=== PATIENT | female | born 1955 | race Caucasian/White ===

== ENCOUNTER 2020-08-26 06:13 | Outpatient (REF) | payer BC, SELFPAY ==
[2020-08-26 11:45] LABS: MANUAL DIFF FLAG NO
[2020-08-26 12:07] LABS: Basophils Percent Auto 0.5 % (0-2); Eosinophils Absolute Auto 0.5 X10*3/uL (0.0-0.4); Eosinophils Percent Auto 5.1 % (0-4); Hematocrit 48.7 % (37-47); Hemoglobin 16.3 g/dl (12.0-16.0); Imm Gran Abs Auto 0.03 X10*3/uL (0.00-0.03); Imm Gran Pct Auto 0.3 % (0.0-0.4); Lymphocytes Absolute Auto 2.6 X10*3/uL (1.2-4.9); Lymphocytes Percent Auto 30.2 % (20-40); Mean Corpuscular HGB Conc 33.5 g/dl (31.0-35.0); Mean Corpuscular Hemoglobin 32.8 pg (27.0-33.0); Mean Platelet Volume 10.9 fL (9.4-12.3); Monocytes Absolute Auto 0.6 X10*3/uL (0.1-1.2); Neutrophils Percent Auto 56.9 % (45-73); Platelet Count 294 X10*3/uL (160-400); Red Blood Count 4.97 X10*6/uL (4.20-5.50); Red Cell Distribution Width 12.1 % (11.0-16.0); White Blood Count 8.7 X10*3/uL (4.8-10.8)
[2020-08-26 12:18] LABS: Alanine Aminotransferase 27 U/L (0-31); Albumin Level 4.3 g/dL (3.5-5.0); Alkaline Phosphatase 106 U/L (39-117); Anion Gap 14 (12-20); Aspartate Amino Transferase 28 U/L (5-31); Bilirubin Total 0.7 mg/dL (0.0-1.0); Blood Urea Nitrogen 9 mg/dL (9-16); Calcium 9.8 mg/dL (8.4-10.2); Carbon Dioxide 29 mmol/L (22-29); Chloride 103 mmol/L (96-108); Cholesterol 199 mg/dL; Estimated Glomerular Filt Rate > 60; Glucose Fasting 93 mg/dL (60-99); HDL Cholesterol 56 mg/dL; LDL Cholesterol Calculated 112 mg/dl; Potassium 5.4 mmol/L (3.3-5.1); Sodium 141 mmol/L (135-145); Total Protein 7.6 g/dL (6.5-8.0); Triglycerides 158 mg/dL
[2020-08-26 12:29] LABS: Free T4 (Free Thyroxine) 0.97 ng/dL (0.71-1.85); Thyroid Stimulating Hormone 1.88 uIU/mL (0.32-4.0)
== END 2020-08-26 06:14 | disposition home or self-care (01) ==
LOC: HO.HMGCLDS 06:13
PROVIDERS: PCP Internal Medicine; Visit Provider Internal Medicine
DX: Z00.00 Encounter for general adult medical examination without abnormal findings (principal); E03.9 Hypothyroidism, unspecified; E78.5 Hyperlipidemia, unspecified
CPT/HCPCS: 36415; 80053; 80061; 84439; 84443; 85025

== ENCOUNTER 2020-09-24 07:25 | Outpatient (REF) | payer BC, SELFPAY ==
--- NOTE | ~2020-09-24 | MM_ITS ---
EXAMINATION: MM SCREENING DIGITAL BREAST TOMOSYNTHESIS, BILATERAL CLINICAL INFORMATION: Screening. Asymptomatic. The lifetime risk of breast cancer based on the Tyrer-Cuzick Model is 4%. COMPARISON: Mammography: 09/22/2019, 09/16/2018, 08/24/2017 TECHNIQUE: Digital breast tomosynthesis is performed in both the craniocaudal and mediolateral oblique views along with computer-aided detection (CAD). Synthesized 2D images are generated from the tomosynthesis. FINDINGS: There are scattered areas of fibroglandular density (ACR BI-RADS breast composition Category b). There are no significant masses, abnormal calcifications, or other abnormalities. There is a dermal lesion again seen overlying the mid inferior right breast. The axilla are unremarkable. MM/MM tomosynthesis screening BI IMPRESSION: No mammographic evidence of malignancy. ASSESSMENT: BI-RADS 2: Benign RECOMMENDATION: Routine annual mammography screening. This patient's information was entered into a reminder system with a target due date for their next mammogram.
== END 2020-09-24 07:26 | disposition home or self-care (01) ==
LOC: HO.MAMMO 07:25
PROVIDERS: PCP Internal Medicine; Visit Provider Internal Medicine
DX: Z12.31 Encounter for screening mammogram for malignant neoplasm of breast (principal)
CPT/HCPCS: 77063; 77067

== ENCOUNTER 2021-08-24 06:13 | Outpatient (REF) | payer BC, SELFPAY ==
[2021-08-24 11:11] LABS: MANUAL DIFF FLAG NO
[2021-08-24 11:38] LABS: Basophils Absolute Auto 0.1 X10*3/uL (0.0-0.2); Basophils Percent Auto 0.6 % (0-2); Eosinophils Absolute Auto 0.6 X10*3/uL (0.0-0.4); Eosinophils Percent Auto 6.5 % (0-4); Hematocrit 49.6 % (37.0-47.0); Hemoglobin 16.5 g/dl (12.0-16.0); Imm Gran Abs Auto 0.03 X10*3/uL (0.00-0.03); Imm Gran Pct Auto 0.4 % (0.0-0.4); Lymphocytes Absolute Auto 2.3 X10*3/uL (1.2-4.9); Lymphocytes Percent Auto 27.5 % (20-40); Mean Corpuscular HGB Conc 33.3 g/dl (31.0-35.0); Mean Corpuscular Hemoglobin 32.8 pg (27.0-33.0); Mean Corpuscular Volume 98.6 fL (80.0-98.0); Mean Platelet Volume 10.9 fL (9.4-12.3); Monocytes Absolute Auto 0.7 X10*3/uL (0.1-1.2); Monocytes Percent Auto 7.8 % (2-11); Neutrophils Absolute Auto 4.8 x10*3/uL (2.0-8.3); Neutrophils Percent Auto 57.2 % (45-73); Platelet Count 286 X10*3/uL (160-400); Red Blood Count 5.03 X10*6/uL (4.20-5.50); Red Cell Distribution Width 12.4 % (11.0-16.0); White Blood Count 8.4 X10*3/uL (4.8-10.8)
[2021-08-24 12:17] LABS: Free T4 (Free Thyroxine) 1.02 ng/dL (0.71-1.85); Thyroid Stimulating Hormone 2.14 uIU/mL (0.32-4.0)
[2021-08-24 12:24] LABS: Alanine Aminotransferase 24 U/L (0-31); Albumin Level 4.1 g/dL (3.5-5.0); Alkaline Phosphatase 118 U/L (39-117); Anion Gap 14 (12-20); Aspartate Amino Transferase 25 U/L (5-31); Bilirubin Direct 0.2 mg/dL (0.0-0.5); Bilirubin Total 0.4 mg/dL (0.0-1.0); Blood Urea Nitrogen 8 mg/dL (9-16); Carbon Dioxide 27 mmol/L (22-29); Chloride 105 mmol/L (96-108); Cholesterol 200 mg/dL; Estimated Glomerular Filt Rate > 60; Glucose Fasting 93 mg/dL (60-99); HDL Cholesterol 55 mg/dL; LDL Cholesterol Calculated 116 mg/dl; Potassium 4.9 mmol/L (3.3-5.1); Sodium 141 mmol/L (135-145); Total Protein 7.6 g/dL (6.5-8.0); Triglycerides 149 mg/dL
== END 2021-08-24 06:14 | disposition home or self-care (01) ==
LOC: HO.HMGCLDS 06:13
PROVIDERS: Visit Provider Internal Medicine
DX: R53.83 Other fatigue (principal); E78.5 Hyperlipidemia, unspecified; E03.9 Hypothyroidism, unspecified
CPT/HCPCS: 36415; 80051; 80061; 80076; 82565; 82947; 84439; 84443; 84520; 85025

== ENCOUNTER 2021-09-28 07:36 | Outpatient (REF) | payer BC, SELFPAY ==
--- NOTE | ~2021-09-28 | MM_ITS ---
EXAMINATION: MM SCREENING DIGITAL BREAST TOMOSYNTHESIS, BILATERAL CLINICAL INFORMATION: Screening. Asymptomatic. The lifetime risk of breast cancer based on the Tyrer-Cuzick Model is 4%. COMPARISON: Mammography: 09/24/2020, 09/22/2019, 09/16/2018, 08/24/2017 TECHNIQUE: Digital breast tomosynthesis is performed in both the craniocaudal and mediolateral oblique views along with computer-aided detection (CAD). Synthesized 2D images are generated from the tomosynthesis. FINDINGS: There are scattered areas of fibroglandular density (ACR BI-RADS breast composition Category b). There is a dermal lesion overlying the mid 5:30 o'clock position right breast. There is no significant mass or developing density or architectural abnormality in either breast. Incidental low right axillary tail nodes are stable. There are some punctate calcifications mid outer right breast, questionably increased on CC view. Patient to be recalled for additional magnification views. MM/MM tomosynthesis screening BI IMPRESSION: Right: -Question increased punctate calcifications mid 9:30 right breast. Left: -No mammographic evidence of malignancy. ASSESSMENT: BI-RADS 0: Incomplete - Need Additional Imaging Evaluation RECOMMENDATION: 1. Additional views of the right breast (magnification CC, magnification ML). 2. Radiology department staff will contact the patient for additional imaging. This patient's information was entered into a reminder system with a target due date for their next mammogram.
== END 2021-09-28 07:37 | disposition home or self-care (01) ==
LOC: HO.MAMMO 07:36
PROVIDERS: PCP Internal Medicine; Visit Provider Internal Medicine
DX: Z12.31 Encounter for screening mammogram for malignant neoplasm of breast (principal)
CPT/HCPCS: 77063; 77067

== ENCOUNTER 2021-10-04 08:20 | Outpatient (REF) | payer BC, SELFPAY ==
--- NOTE | ~2021-10-04 | MM_ITS ---
EXAMINATION: MM DIAGNOSTIC DIGITAL MAMMOGRAPHY, RIGHT CLINICAL INFORMATION: Recall from screening for question of increased punctate calcifications mid 9:30 right breast. COMPARISON: Mammography: 09/28/2021, 09/24/2020, 09/22/2019 TECHNIQUE: Digital mammography is performed in the following views: Magnification CC, magnification ML FINDINGS: There are scattered areas of fibroglandular density (ACR BI-RADS breast composition Category b). Additional magnification views show some loosely grouped calcifications mid 9:00 position on CC view, dispersed on ML view. Results are discussed with the patient at time of visit. Management plan is for short interval six-month follow-up right mammography to include magnification views. MM/MM added views RT IMPRESSION: Probable benign calcifications mid 9:00 right breast. ASSESSMENT: BI-RADS 3: Probably Benign RECOMMENDATION: Diagnostic right mammography in 6 months. This patient's information was entered into a reminder system with a target due date for their next mammogram.
== END 2021-10-04 08:21 | disposition home or self-care (01) ==
LOC: HO.MAMMO 08:20
PROVIDERS: Visit Provider Internal Medicine
DX: R92.1 Mammographic calcification found on diagnostic imaging of breast (principal)
CPT/HCPCS: 77065

== ENCOUNTER 2022-04-12 10:49 | Outpatient (REF) | payer BC, SELFPAY ==
--- NOTE | ~2022-04-12 | MM_ITS ---
EXAMINATION: MM DIAGNOSTIC DIGITAL BREAST TOMOSYNTHESIS, RIGHT CLINICAL INFORMATION: Short interval six-month follow-up probable benign calcifications mid upper outer right breast. The lifetime risk of breast cancer based on the Tyrer-Cuzick Model is 4%. COMPARISON: Mammography: 10/04/2021, 09/28/2021 (BI-RADS 0), 09/24/2020, 09/22/2019 TECHNIQUE: Digital breast tomosynthesis is performed in both the craniocaudal and mediolateral oblique views along with computer-aided detection (CAD). Synthesized 2D images are generated from the tomosynthesis. Additional magnification CC and magnification ML x2 views are obtained. FINDINGS: There are scattered areas of fibroglandular density (ACR BI-RADS breast composition Category b). Parenchymal pattern is similar to prior exams and there is no developing density or interval mass or architectural abnormality. There is a dermal lesion overlying the mid 8:00 right breast. Calcifications for follow-up mid upper outer right breast are similar to prior diagnostic exam. There are no increasing calcifications or interval pleomorphic types. Calcifications will be reassessed again in 6 months at time of annual bilateral mammography. Results are discussed with the patient at time of visit. MM/MM tomosynthesis diagnostic RT IMPRESSION: Probable benign calcifications upper outer right breast similar to prior diagnostic exam. ASSESSMENT: BI-RADS 3: Probably Benign RECOMMENDATION: Diagnostic mammography at time of annual bilateral exam, due in 6 months. This patient's information was entered into a reminder system with a target due date for their next mammogram.
== END 2022-04-12 10:50 | disposition home or self-care (01) ==
LOC: HO.MAMMO 10:49
PROVIDERS: PCP Internal Medicine; Visit Provider Internal Medicine
DX: R92.1 Mammographic calcification found on diagnostic imaging of breast (principal)
CPT/HCPCS: 77061; 77065

== ENCOUNTER 2022-10-20 08:22 | Outpatient (REF) | payer BC, SELFPAY ==
--- NOTE | ~2022-10-20 | MM_ITS ---
EXAMINATION: MM DIAGNOSTIC DIGITAL BREAST TOMOSYNTHESIS, BILATERAL CLINICAL INFORMATION: The patient presents for follow-up of right breast calcifications and left screening mammography. The lifetime risk of breast cancer based on the Tyrer-Cuzick Model is 3.6%. COMPARISON: Mammography: This study is compared with the prior exams dating back to 2020. TECHNIQUE: Digital breast tomosynthesis is performed in both the craniocaudal and mediolateral oblique views along with computer-aided detection (CAD). Synthesized 2D images are generated from the tomosynthesis. CC and lateral magnification imaging of the right breast. FINDINGS: There are scattered areas of fibroglandular density (ACR BI-RADS breast composition Category b). There are no significant masses, abnormal calcifications, or other abnormalities. There is been no interval change in the appearance of the benign calcifications in the upper outer quadrant of the right breast. MM/MM tomosynthesis diagnostic BI IMPRESSION: No mammographic signs of malignancy. Benign calcifications right breast. Routine annual screening mammography is advised. Results are provided to the patient at time of visit by the technologist. ASSESSMENT: BI-RADS BI-RADS 2 - Benign Findings RECOMMENDATION: 1 year F/U This patient's information was entered into a reminder system with a target due date for their next mammogram.
== END 2022-10-20 08:23 | disposition home or self-care (01) ==
LOC: HO.MAMMO 08:22
PROVIDERS: Visit Provider Internal Medicine
DX: R92.1 Mammographic calcification found on diagnostic imaging of breast (principal)
CPT/HCPCS: 77062; 77066

== ENCOUNTER → 2022-10-20 08:30 | Outpatient (BNV) | payer BC, SELFPAY | PROVIDERS: Visit Provider Radiology Diagnostic Radiology | DX: R92.1 Mammographic calcification found on diagnostic imaging of breast (principal) | CPT/HCPCS: 77066 ==

== ENCOUNTER 2023-03-13 06:59 | Outpatient (REF) | payer BC, SELFPAY ==
[2023-03-13 11:26] LABS: MANUAL DIFF FLAG NO
[2023-03-13 11:30] LABS: Basophils Absolute Auto 0.1 X10*3/uL (0.0-0.2); Basophils Percent Auto 0.6 % (0-2); Eosinophils Absolute Auto 0.2 X10*3/uL (0.0-0.4); Eosinophils Percent Auto 1.6 % (0-4); Hematocrit 46.9 % (37.0-47.0); Hemoglobin 15.6 g/dl (12.0-16.0); Imm Gran Abs Auto 0.04 X10*3/uL (0.00-0.03); Imm Gran Pct Auto 0.4 % (0.0-0.4); Lymphocytes Absolute Auto 2.4 X10*3/uL (1.2-4.9); Lymphocytes Percent Auto 24.5 % (20-40); Mean Corpuscular HGB Conc 33.3 g/dl (31.0-35.0); Mean Corpuscular Hemoglobin 32.7 pg (27.0-33.0); Mean Corpuscular Volume 98.3 fL (80.0-98.0); Monocytes Absolute Auto 0.8 X10*3/uL (0.1-1.2); Monocytes Percent Auto 8.1 % (2-11); Neutrophils Absolute Auto 6.3 x10*3/uL (2.0-8.3); Neutrophils Percent Auto 64.8 % (45-73); Platelet Count 416 X10*3/uL (160-400); Red Blood Count 4.77 X10*6/uL (4.20-5.50); Red Cell Distribution Width 11.9 % (11.0-16.0); White Blood Count 9.7 X10*3/uL (4.8-10.8)
[2023-03-13 12:06] LABS: Alanine Aminotransferase 12 U/L (0-31); Albumin Level 3.6 g/dL (3.5-5.0); Alkaline Phosphatase 116 U/L (39-117); Anion Gap 15 (12-20); Aspartate Amino Transferase 20 U/L (5-31); Bilirubin Direct 0.3 mg/dL (0.0-0.5); Bilirubin Total 0.6 mg/dL (0.0-1.0); Blood Urea Nitrogen 8 mg/dL (9-16); Carbon Dioxide 28 mmol/L (22-29); Chloride 104 mmol/L (96-108); Cholesterol 164 mg/dL (<200); Estimated Glomerular Filt Rate > 60; Glucose Fasting 91 mg/dL (60-99); HDL Cholesterol 44 mg/dL (>40); LDL Cholesterol Calculated 89 mg/dL (<100); Potassium 4.7 mmol/L (3.3-5.1); Sodium 142 mmol/L (135-145); Total Protein 7.6 g/dL (6.5-8.0); Triglycerides 155 mg/dL (<150)
[2023-03-13 12:07] LABS: Thyroid Stimulating Hormone 2.29 uIU/mL (0.32-4.0)
[2023-03-13 13:30] LABS: Free T4 (Free Thyroxine) 0.98 ng/dL (0.71-1.85)
== END 2023-03-13 07:00 | disposition home or self-care (01) ==
LOC: HO.HMGCLDS 06:59
PROVIDERS: PCP Internal Medicine; Visit Provider Internal Medicine
DX: Z00.00 Encounter for general adult medical examination without abnormal findings (principal); R53.83 Other fatigue; E78.5 Hyperlipidemia, unspecified
CPT/HCPCS: 36415; 80051; 80061; 80076; 82565; 82947; 84439; 84443; 84520; 85025

== ENCOUNTER → 2023-04-18 09:47 | Outpatient (REF) | payer BC, SELFPAY ==
--- NOTE | 2023-04-18 09:49 | CA_ITS ---
Transthoracic Echocardiogram Patient (Last, First, Middle): Kena Mendes E Gender: Female Date of : 1955 Age: 67 Procedure Date: 04/18/2023 Procedure Type: Transthoracic Echocardiogram Location: OP Height: 162.56 cm Weight: 61.24 kg BSA: 1.66 m2 Heart Rate: 84 bpm BP: 120 / 80 mmHg Fire Official: SB Referring MD: Valeriano Napoles MD Dry Roller: Doron Weinberg MD Symptoms: NEW MURMUR Study Quality: Fair but adequate ECG Rhythm: Sinus Conclusions: - 1. Hyperdynamic LV ejection fraction greater than 70% with mild LVH and grade 1 diastolic dysfunction with mild obstructive physiology 2. Normal cardiac valvular Doppler 3. No gross pericardial effusion Findings Procedure Information The quality of the study was technically difficult. The study quality is limited by lung artifact. Left Ventricle Normal left ventricular cavity size. There is mildly increased left ventricular wall thickness. The left ventricular systolic function is hyperdynamic. The visually estimated ejection fraction is >70%. Spectral Doppler is indicative of an impaired relaxation filling pattern. E/E prime ratio is <8, consistent with normal filling pressures. Evidence suggests grade I (mild) diastolic dysfunction. Mildly increased gradient across the left ventricular outflow track, suggestive of mild obstructive physiology, dynamic obstruction can not be entirely ruled out Right Ventricle Normal right ventricular cavity size. Atria The left atrium is normal in size. Interatrial shunt cannot be excluded. The right atrium was not well visualized. Aortic Valve The aortic valve structure and function is likely normal. There is no aortic valve stenosis. There is no aortic valve regurgitation. Mitral Valve Normal mitral valve structure and function. There is trace mitral valve regurgitation. There is no mitral valve stenosis. Pulmonic Valve The pulmonic valve was not well visualized. Tricuspid Valve Likely normal tricuspid valve structure and function. Tricuspid regurgitation envelope is inadequate for calculation of right ventricular systolic pressure. Normal right atrial pressure. Great Vessels The pulmonary artery was not well visualized. There is no dilatation of the ascending aorta measuring 2.60 cm. Venous The inferior vena cava is normal in size and collapses greater than 50% with inspiration. Pericardium/Pleural There is no evidence of pericardial effusion. Prior Study Comparison No prior study available for comparison. Measurements 2D Linear Measurements IVSd: 1.17 0.6-0.9/0.6-1.0 cm LVIDd: 3.52 3.9-5.3/4.2-5.9 cm LVIDd Index: 2.12 2.4-3.2/2.2-3.1 cm/m2 LVIDs: 1.65 2.0-3.6 cm LVPWd: 1.17 0.7-1.1 cm LA Diam: 2.80 2.7-3.8/3.0-4.0 cm LAIDs Index: 1.69 1.5-2.3 cm/m2 LV Mass: 163.92 67-162/88-224 g LV Mass Index: 98.75 43-95/49-115 g/m2 LVOT Diam: 2.00 3.0+(-)1.3 cm 2D Systolic Function EF 4C: 74.10 >55% Mitral Valve MV Pk E: 0.58 MV PK A: 0.89 MV Decel Time: 257.00 E/A: 0.60 E'Lateral: 6.31 E'Medial: 5.87 E/E' Med: 9.80 E/E' Lat: 9.20 PHT: 75.00 MVA PHT: 2.93 Decel Vermillion: 2.25 Aortic Valve AoV Pk Jose: 2.03 AoV Mn Jose: 1.49 AoV VTI: 0.39 AoV Pk Grad: 16.00 Aov Mn Grad: 10.00 KATHLEEN Cont.VTI: 2.68 LVOT LVOT Pk Jose: 1.95 LVOT Mn Jose: 1.41 LVOT VTI: 0.34 LVOT Pk Grad: 15.00 LVOT Mn Grad: 9.00 LVOT Diam: 2.00 LVOT Area: 3.14 Diastolic Function MV Pk E: 0.58 MV Pk A: 0.89 E/A: 0.60 E'Medial: 5.87 E/E' Med: 9.80 E' Laterial: 6.31 E/E' Lat: 9.20 Right Ventricle TAPSE (mm): 15.20 TVS' Jose: 11.30 Tricuspid Valve RA Press: 3.00 Great Vessels Aorta Sinus of Valsalva: 2.90 2.0-3.5 cm Ao Asc: 2.60 2.1-3.4 cm Pulmonary Valve PV Pk Jose: 1.13 Peak PV Grad: 5.00 Updated in Other Vendor System with Status of Final Doron Weinberg MD electronically signed on 04/18/2023 12:02:25 PM with status of Final
== END ==
LOC: HO.CARD 09:47
PROVIDERS: PCP Internal Medicine; Visit Provider Internal Medicine
DX: R01.1 Cardiac murmur, unspecified (principal)
CPT/HCPCS: 93306

== ENCOUNTER → 2023-04-18 09:49 | Outpatient (BNV) | payer BC, SELFPAY | PROVIDERS: PCP Internal Medicine; Visit Provider Internal Medicine Cardiovascular Disease | DX: R01.1 Cardiac murmur, unspecified (principal) | CPT/HCPCS: 93306 ==

== ENCOUNTER 2023-10-26 07:06 | Outpatient (REF) | payer BC, SELFPAY ==
--- NOTE | ~2023-10-26 | MM_ITS ---
EXAMINATION: MM SCREENING DIGITAL BREAST TOMOSYNTHESIS, BILATERAL CLINICAL INFORMATION: Screening. Asymptomatic. COMPARISON: Mammography: This study is compared with prior exams dating back to 2019. TECHNIQUE: Digital breast tomosynthesis is performed in both the craniocaudal and mediolateral oblique views along with computer-aided detection (CAD). Synthesized 2D images are generated from the tomosynthesis. FINDINGS: The breasts are almost entirely fatty (ACR BI-RADS breast composition Category a). There are no significant masses, abnormal calcifications, or other abnormalities. MM/MM tomosynthesis screening BI IMPRESSION: No mammographic evidence of malignancy. ASSESSMENT: BI-RADS BI-RADS 1 - Negative RECOMMENDATION: Routine annual mammography screening. 1 year F/U This examination should not preclude the clinical evaluation of a suspicious palpable abnormality. This patient's information was entered into a reminder system with a target due date for their next mammogram. Electronically signed by: Grace Young MD 11/23/2023 12:26 PM EDT
== END 2023-10-26 07:07 | disposition home or self-care (01) ==
LOC: HO.MAMMO 07:06
PROVIDERS: PCP Internal Medicine; Visit Provider Internal Medicine
DX: Z12.31 Encounter for screening mammogram for malignant neoplasm of breast (principal)
CPT/HCPCS: 77063; 77067

== ENCOUNTER → 2023-10-26 07:30 | Outpatient (BNV) | payer BC, SELFPAY | PROVIDERS: PCP Internal Medicine; Visit Provider Radiology Diagnostic Radiology | DX: Z12.31 Encounter for screening mammogram for malignant neoplasm of breast (principal) | CPT/HCPCS: 77063; 77067 ==

== ENCOUNTER 2024-03-11 07:44 | Outpatient (REF) | payer BC, SELFPAY ==
[2024-03-11 09:59] LABS: MANUAL DIFF FLAG NO
[2024-03-11 10:12] LABS: Basophils Absolute Auto 0.1 X10*3/uL (0.0-0.2); Basophils Percent Auto 0.9 % (0-2); Eosinophils Absolute Auto 0.2 X10*3/uL (0.0-0.4); Eosinophils Percent Auto 2.9 % (0-4); Hematocrit 48.8 % (37.0-47.0); Hemoglobin 16.9 g/dl (12.0-16.0); Imm Gran Abs Auto 0.04 X10*3/uL (0.00-0.03); Imm Gran Pct Auto 0.5 % (0.0-0.4); Lymphocytes Absolute Auto 2.6 X10*3/uL (1.2-4.9); Lymphocytes Percent Auto 33.4 % (20-40); Mean Corpuscular HGB Conc 34.6 g/dl (31.0-35.0); Mean Corpuscular Hemoglobin 33.5 pg (27.0-33.0); Mean Corpuscular Volume 96.8 fL (80.0-98.0); Mean Platelet Volume 10.8 fL (9.4-12.3); Monocytes Absolute Auto 0.7 X10*3/uL (0.1-1.2); Neutrophils Absolute Auto 4.1 x10*3/uL (2.0-8.3); Neutrophils Percent Auto 53.3 % (45-73); Platelet Count 291 X10*3/uL (160-400); Red Blood Count 5.04 X10*6/uL (4.20-5.50); Red Cell Distribution Width 12.4 % (11.0-16.0); White Blood Count 7.7 X10*3/uL (4.8-10.8)
[2024-03-11 10:34] LABS: Alanine Aminotransferase 24 U/L (0-31); Albumin Level 3.8 g/dL (3.5-5.0); Alkaline Phosphatase 88 U/L (39-117); Anion Gap 12 (12-20); Aspartate Amino Transferase 32 U/L (5-31); Bilirubin Total 0.6 mg/dL (0.0-1.0); Blood Urea Nitrogen 10 mg/dL (9-16); Calcium 9.6 mg/dL (8.4-10.2); Carbon Dioxide 29 mmol/L (22-29); Chloride 104 mmol/L (96-108); Cholesterol 182 mg/dL (<200); Estimated Glomerular Filt Rate > 60; Glucose Fasting 98 mg/dL (60-99); HDL Cholesterol 61 mg/dL (>40); LDL Cholesterol Calculated 99 mg/dL (<100); Potassium 4.8 mmol/L (3.3-5.1); Sodium 140 mmol/L (135-145); Total Protein 7.4 g/dL (6.5-8.0); Triglycerides 113 mg/dL (<150)
[2024-03-11 10:53] LABS: Free T4 (Free Thyroxine) 1.12 ng/dL (0.71-1.85); Thyroid Stimulating Hormone 0.03 uIU/mL (0.32-4.0)
== END 2024-03-11 07:45 | disposition home or self-care (01) ==
LOC: HO.HMGCLDS 07:44
PROVIDERS: PCP Internal Medicine; Visit Provider Internal Medicine
DX: Z00.00 Encounter for general adult medical examination without abnormal findings (principal); E78.5 Hyperlipidemia, unspecified; E03.9 Hypothyroidism, unspecified
CPT/HCPCS: 36415; 80053; 80061; 84439; 84443; 85025

== ENCOUNTER → 2024-04-01 10:58 | Outpatient (REF) | payer BC, SELFPAY ==
--- NOTE | 2024-04-01 11:00 | CA_ITS ---
Transthoracic Echocardiogram Patient (Last, First, Middle): Kena Mendes E Gender: Female Date of : 1955 Age: 68 Procedure Date: 04/01/2024 Procedure Type: Transthoracic Echocardiogram Location: OP Height: 162.56 cm Weight: 56.7 kg BSA: 1.60 m2 Heart Rate: bpm BP: 130 / 72 mmHg Psych Sales Specialist: CIRILO Referring MD: Valeriano Napoles MD Symptoms: F/U MURMUR Study Quality: Fair ECG Rhythm: Sinus Conclusions: - The left ventricular systolic function is hyperdynamic. The visually estimated ejection fraction is >70%. - Resting LV intra-cavitary gradient of 6mmHg; with valsalva, reaches 24mmHg. - No obvious valvular pathology seen on this study. Findings Left Ventricle Normal left ventricular cavity size. There is mildly increased left ventricular wall thickness. The left ventricular systolic function is hyperdynamic. The visually estimated ejection fraction is >70%. There is no evidence of regional wall motion abnormalities. Diastolic function is normal for age. Resting LV intra-cavitary gradient of 6mmHg; with valsalva, reaches 24mmHg. Right Ventricle Normal right ventricular cavity size and systolic function. Atria Both atria are normal in size. Aortic Valve There is a normal trileaflet aortic valve. There is mild calcification of the aortic valve. There is no aortic valve stenosis. There is no aortic valve regurgitation. Mitral Valve The mitral valve appears normal. There is trace mitral valve regurgitation. There is no mitral valve stenosis. Pulmonic Valve The pulmonic valve is likely normal. Tricuspid Valve Normal tricuspid valve structure. There is trace tricuspid valve regurgitation. There is no evidence of pulmonary hypertension. Great Vessels The asc aorta is normal in size. Venous The inferior vena cava is normal in size and collapses greater than 50% with inspiration. Pericardium/Pleural There is no evidence of pericardial effusion. Prior Study Comparison No significant change compared to prior study dated: 04/18/2023. Recommendations, Care & Conclusions No obvious valvular pathology seen on this study. Measurements 2D Linear Measurements IVSd: 1.13 0.6-0.9/0.6-1.0 cm LVIDd: 3.42 3.9-5.3/4.2-5.9 cm LVIDd Index: 2.14 2.4-3.2/2.2-3.1 cm/m2 LVIDs: 2.17 2.0-3.6 cm LVPWd: 1.11 0.7-1.1 cm LA Diam: 2.40 2.7-3.8/3.0-4.0 cm LAIDs Index: 1.50 1.5-2.3 cm/m2 LV Mass: 146.97 67-162/88-224 g LV Mass Index: 91.86 43-95/49-115 g/m2 LVOT Diam: 2.10 3.0+(-)1.3 cm Mitral Valve MV Pk E: 0.51 MV PK A: 0.87 MV Decel Time: 317.00 E/A: 0.60 E'Lateral: 6.09 E'Medial: 4.57 E/E' Med: 11.20 E/E' Lat: 8.40 PHT: 93.00 MVA PHT: 2.37 Decel Custer: 1.61 Aortic Valve AoV Pk Jose: 1.75 AoV Mn Jose: 1.11 AoV VTI: 0.37 AoV Pk Grad: 12.00 Aov Mn Grad: 6.00 KATHLEEN Cont.VTI: 2.40 LVOT LVOT Pk Jose: 1.29 LVOT Mn Jose: 1.01 LVOT VTI: 0.26 LVOT Pk Grad: 7.00 LVOT Mn Grad: 4.00 LVOT Diam: 2.10 LVOT Area: 3.46 Diastolic Function MV Pk E: 0.51 MV Pk A: 0.87 E/A: 0.60 E'Medial: 4.57 E/E' Med: 11.20 E' Laterial: 6.09 E/E' Lat: 8.40 Right Ventricle TAPSE (mm): 17.50 TVS' Jose: 11.90 Tricuspid Valve RA Press: 3.00 Great Vessels Aorta Sinus of Valsalva: 2.79 2.0-3.[address] [place]: 2.62 1.7-3.4 cm Ao Asc: 2.80 2.1-3.4 cm Updated in Other Vendor System with Status of Final Dirk Boyce MD electronically signed on 04/02/2024 12:53:18 PM with status of Final
== END ==
LOC: HO.CARD 10:58
PROVIDERS: PCP Internal Medicine; Visit Provider Internal Medicine
DX: R01.1 Cardiac murmur, unspecified (principal)
CPT/HCPCS: 93306

== ENCOUNTER → 2024-04-01 11:00 | Outpatient (BNV) | payer BC, SELFPAY | PROVIDERS: PCP Internal Medicine; Visit Provider Internal Medicine | DX: R01.1 Cardiac murmur, unspecified (principal); I35.8 Other nonrheumatic aortic valve disorders | CPT/HCPCS: 93306 ==

== ENCOUNTER 2024-06-03 09:30 | Outpatient (AMB) | payer BC, SELFPAY ==
--- NOTE | 2024-06-03 09:36 | MHC.PC.OV ---
Vital Signs 06/03/24 09:40 Height 5 ft 4 in Weight 123 lb BMI 21.1 BP 116/68 Respiration 14 Pulse 92 Pulse Source Pulse Oximeter Temp 97.6 F Pulse Oximetry (%) 98 Oxygen Delivery Method Room Air Intake Visit Reasons: New patient Stock Mixer Required: No Accompanied by: Self / Same As Patient Allergies No Known Allergies Allergy (Unverified 06/03/24 10:09) Medication List - Last Reconciled 06/03/24 by Cirilo Smalls MD alendronate 70 mg PO QWEEK levothyroxine 25 mcg PO DAILY simvastatin 20 mg PO DAILY Tobacco use date assessed: 06/03/24 Fall risk assessment: No Falls in past year Last assessed Fall Risk: 06/03/24 Dental Screening Dental Screen Date: 06/03/24 Did you have a dental visit in the last 12 months?: Yes Did you have a dental problem in the last 6 months where you did not have access to dental care?: No [facility] Medical History (Updated 06/03/24 @ 10:03 by Cirilo Smalls MD) Tobacco use disorder Acquired hypothyroidism Age-related osteoporosis without current pathological fracture Hyperlipidemia, unspecified Family History Brother Diabetes Mother Bipolar 1 disorder Social History Housing: House Alcohol intake: current Alcohol intake frequency: 0-2 drinks per day Alcohol type: beer Patient Tobacco Use Status: Current everyday Tobacco user Cigarettes Per Day: 5 service: No Current occupational status: retired Cognitive needs: No Hearing needs: No Vision needs: Yes Questionnaire PHQ-9 Over the last 2 weeks, how often have you been bothered by any of the following problems? 1. Little interest or pleasure in doing things: not at all 2. Feeling down, depressed, or hopeless: not at all 3. Trouble falling or staying asleep, or sleeping too much: not at all 4. Feeling tired or having little energy: not at all 5. Poor appetite or overeating: not at all 6. Feeling bad about yourself - or that you are a failure or have let yourself or your family down: not at all 7. Trouble concentrating on things, such as reading the newspaper or watching television: not at all 8. Moving or speaking so slowly that other people could have noticed. Or the opposite - being so fidgety or restless that you have been moving around a lot more than usual: not at all 9. Thoughts that you would be better off or of hurting yourself in some way: not at all Total score: 0 Source: Developed by Drs. Bart Torres, Autumn Canas, Yaya Mullen and colleagues, with an educational mohsen from [employer]. Thrive Questionnaire Date Thrive assessed: 06/03/24 I am a: Patient What is your living situation today?: I have a steady place to live Within the past 12 months, did the food you bought not last and you didn't have the money to get more?: Never true Within the past 12 months, did you worry whether your food would run out before you got money to buy more?: Never true Do you have trouble paying for medicines?: No Do you have trouble getting transportation to medical appointments?: No Do you have trouble paying your heating and electricity bill?: No Do you have trouble taking care of your child, family member or friend?: No Do you have trouble with day-to-day activities such as bathing, preparing meals, shopping, managing finances, etc.?: No Are you currently unemployed and looking for a job?: No Are you interested in more education?: No THRIVE Score: 0 AUDIT C Alcohol Use Questionnaire (AUDIT-C) 1. How often do you have a drink containing alcohol?: 4 or more times a week 2. How many drinks containing alcohol do you have on a typical day when you are drinking?: 1 or 2 3. How often do you have six or more drinks on one occasion?: Never Total Score: 4 MIRIAM-7 AMB Questionnaire MIRIAM-7 Date MIRIAM - 7 assessed: 06/03/24 Feeling nervous, anxious, or on edge: 0 = Not at all Not being able to stop or control worryin = Not at all Worrying too much about different things: 0 = Not at all Trouble relaxin = Not at all Being so restless that it is hard to sit still: 0 = Not at all Becoming easily annoyed or irritable: 0 = Not at all Feeling afraid as if something awful might happen: 0 = Not at all Total MIRIAM-7 score (0-4 normal; 5-9 mild; 10-14 moderate; 15-21 severe): 0 Source: Developed by Drs. Bart Torres, Autumn Cnaas, Yaya Mullen and colleagues, with an educational mohsen from [employer]. Physical exam (Primary Care) Vital Signs: Last Vital Signs Temp 97.6 F 06/03/24 09:40 Pulse 92 06/03/24 09:40 Resp 14 06/03/24 09:40 BP 116/68 06/03/24 09:40 Pulse Ox 98 06/03/24 09:40 Oxygen Delivery Method Room Air 06/03/24 09:40 BMI result Body Mass Index 21.1 Tobacco/Smoking Status: Tobacco use Status Tobacco use date assessed 06/03/24 06/03/24 09:50 Patient Tobacco Use Status Current everyday Tobacco 06/03/24 09:50 PHQ-9: PHQ-9 Score PHQ-9: Total score 0 06/03/24 09:50 Thrive Assessment: Date of Thrive Assessment Date Thrive assessed 06/03/24 06/03/24 09:50 Coding Level of Care Code New Pt Level 4 (30570) Complex EM visit Add On G2211 Diagnoses Acquired hypothyroidism E03.9 Age-related osteoporosis without current pathological fracture M81.0 Hyperlipidemia, unspecified E78.5 Tobacco use disorder F17.200 Assessment & Plan Assessment & Plan (1) Acquired hypothyroidism: Code(s): E03.9 - Hypothyroidism, unspecified Category: Medical Plan: Rpt TSH, dosage to be adjusted based on results (2) Age-related osteoporosis without current pathological fracture: Code(s): M81.0 - Age-related osteoporosis without current pathological fracture Category: Medical Plan: Continue Alendronate. (3) Hyperlipidemia, unspecified: Code(s): E78.5 - Hyperlipidemia, unspecified Category: Medical Plan: Continue Statin. Will call with results (4) Tobacco use disorder: Code(s): F17.200 - Nicotine dependence, unspecified, uncomplicated Category: Medical Plan: Counselling to quit smoking done Plan History of Present Illness The patient is a 68-year-old female presenting for a wellness visit and chronic condition management. She reports difficulty with weight gain and alterations in dietary habits following the of her two years ago, impacting her nutritional status. She uses nutritional supplements to aid in weight maintenance. The patient's chronic medical history includes osteoporosis managed with weekly alendronate, hyperlipidemia controlled with daily bedtime doses of Simvastatin, and hypothyroidism treated with 50 mcg of thyroid medication. She has been screened for cardiac issues through echocardiograms with no significant findings noted except for a previously identified heart murmur. She adheres to regular preventive screenings, including annual mammograms and Cologuard tests, opting out of invasive colonoscopy procedures. Her health maintenance also includes an occasional review of blood work during annual physicals. 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 - Nutritional intake: Consuming Ensure supplements to maintain weight Review of Systems Physical Exam General: Appearance normal, both eyes and all related structures Nutritional Appearance: Underweight, patient reports difficulty gaining weight Orientation/consciousness: Patient oriented x3 Limitations: No limitations Head: Normal to inspection Neck: Normal visual inspection Chest: Normal palpation of entire chest wall Respiratory: Normal respiratory effort Neurology: Patient oriented x3 Heart: S1 S2, ESM best heard in the apical area Results - Tests: Previous echocardiograms negative for significant findings - Screenings: Mammogram last completed last summer; Cologuard test done last year Plan We aim to monitor and manage the patient's chronic conditions effectively, ensuring that her thyroid function and other relevant parameters are assessed through blood work. She will continue with her established medication regimen for osteoporosis and hyperlipidemia. The patient's nutritional status will be supported with supplements and efforts to increase solid food intake. The heart murmur is noted but requires no immediate intervention following prior tests. Compliance with non-invasive screening methods like Cologuard will be encouraged as she declines colonoscopy. We have scheduled a follow-up appointment in six months for further evaluation and continuance of her health maintenance and preventative care plans. Will await Cologard report and Echo records from previous MD Dr Napoles. Patient was informed and verbally consented to the use of an ambient scribe for clinic note documentation during this visit. Discussion Notes During the visit, I discussed with the patient the management of her chronic conditions, notably osteoporosis, hyperlipidemia, hypothyroidism, and her heart murmur. The importance of continued medication adherence was emphasized, and the plan for ongoing non-invasive screenings was reviewed. We discussed her recent lifestyle changes, including her living situation, smoking habits, and sleep patterns. I recommended specific actions like nutritional supplement use and smoking moderation. The patient was consented on the symptoms to monitor and when to reach out for earlier than scheduled reviews. Her next appointment is in six months, aligning with her physical examination protocol. Patient Instructions - Continue current medication regimen for all chronic conditions. - Maintain nutritional intake with Ensure and attempt to increase solid food consumption. - Proceed with scheduled blood work for thyroid testing. - Keep smoking to a minimum, ideally reducing the daily intake further. - Monitor any significant health changes and report if necessary. - Adhere to regular health screening practices; next Cologuard due per interval guidance. - A follow-up appointment has been arranged for six months. - Report any cardiorespiratory or other concerning symptoms immediately. Orders: Orders Thyroid Stimulating Hormone Today E03.9 - Hypothyroidism, unspecified, E78.5 - Hyperlipidemia, unspecified, F17.200 - Nicotine dependence, unspecified, uncomplicated, M81.0 - Age-related osteoporosis without current pathological fracture UA and rflx microscopic Today E03.9 - Hypothyroidism, unspecified, E78.5 - Hyperlipidemia, unspecified, F17.200 - Nicotine dependence, unspecified, uncomplicated, M81.0 - Age-related osteoporosis without current pathological fracture Basic Metabolic Panel Today E03.9 - Hypothyroidism, unspecified, E78.5 - Hyperlipidemia, unspecified, F17.200 - Nicotine dependence, unspecified, uncomplicated, M81.0 - Age-related osteoporosis without current pathological fracture Lipid Panel Today E03.9 - Hypothyroidism, unspecified, E78.5 - Hyperlipidemia, unspecified, F17.200 - Nicotine dependence, unspecified, uncomplicated, M81.0 - Age-related osteoporosis without current pathological fracture Liver Panel Today E03.9 - Hypothyroidism, unspecified, E78.5 - Hyperlipidemia, unspecified, F17.200 - Nicotine dependence, unspecified, uncomplicated, M81.0 - Age-related osteoporosis without current pathological fracture Complete Blood Count no Diff Today E03.9 - Hypothyroidism, unspecified, E78.5 - Hyperlipidemia, unspecified, F17.200 - Nicotine dependence, unspecified, uncomplicated, M81.0 - Age-related osteoporosis without current pathological fracture
[2024-06-03 09:40] VITALS: BP 116/68; PULSE 92; RESP 14; TEMP 36.4; O2SAT 98; BMI 21.1
== END 2024-06-03 10:04 | disposition home or self-care (01) ==
LOC: HO.HMCSH 09:30
PROVIDERS: PCP Internal Medicine; Visit Provider Internal Medicine
DX: E03.9 Hypothyroidism, unspecified (principal); M81.0 Age-related osteoporosis without current pathological fracture; E78.5 Hyperlipidemia, unspecified; F17.200 Nicotine dependence, unspecified, uncomplicated

== ENCOUNTER 2024-08-07 08:04 | Outpatient (REF) | payer BC, SELFPAY ==
--- NOTE | ~2024-08-07 | XR_ITS ---
EXAMINATION: XR RIBS, LEFT CLINICAL INFORMATION: S20.212A - Contusion of left front wall of thorax, initial encounter COMPARISON: None available. TECHNIQUE: 3 views of the left ribs were obtained. FINDINGS: Lungs are clear. No consolidation, pneumothorax, or pleural effusion. The cardiomediastinal silhouette and pulmonary vasculature are normal. There is a right convex thoracic scoliosis, apex at T7. There are acute appearing minimally displaced fractures of the left lateral fourth through seventh ribs. XR/XR ribs LT min 3V w CXR1V IMPRESSION: 1. Acute fractures left lateral fourth through seventh ribs. 2. Clear lungs without evidence of pneumothorax or effusion. Electronically signed by: Levy Stern MD 08/07/2024 08:49 AM EDT
== END 2024-08-07 08:05 | disposition home or self-care (01) ==
LOC: HO.HMGCX 08:04
PROVIDERS: PCP Internal Medicine; Visit Provider Nurse Practitioner Family
DX: S20.212A Contusion of left front wall of thorax, initial encounter (principal)
CPT/HCPCS: 71101

== ENCOUNTER 2024-08-07 08:04 | Outpatient (AMB) | payer BC, SELFPAY ==
--- NOTE | 2024-08-07 08:05 | AM.OFFWIN_ITS ---
Intake Vital Signs 3 08/07/24 08:06 Weight 123 lb BP 128/70 Blood Pressure Location Rt brachial Position Sitting Pulse 79 Pulse Source Pulse Oximeter Pulse Oximetry (%) 97 Oxygen Delivery Method Room Air Intake Visit Reasons: EP Injury due to fall (Rib) Intake Note: Patient here for left rib pain after a fall last sunday in her living room, she is unsure if she hit her coffee table Patient Tobacco Use Status: Current everyday Tobacco user Allergies No Known Allergies Allergy (Unverified 08/07/24 08:07) Do you need a note to return to daycare/school/sports/work: No HPI HPI Comments 2 History of Present Illness0 Details 68 y/o Female patient who [facility] with c/o Left Sided chest wall pain after a Fall at home last Sunday. She is not sure if she Hit her Coffee Table when she fell. Denies SOB, Wheezing or Chest Pains. [facility] Medical History (Updated 08/07/24 @ 08:29 by Lou Gregorio NP) Contusion of left chest wall Tobacco use disorder Acquired hypothyroidism Age-related osteoporosis without current pathological fracture Hyperlipidemia, unspecified Family History Brother Diabetes Mother Bipolar 1 disorder Social History Housing: House Alcohol intake: current Alcohol intake frequency: 0-2 drinks per day Alcohol type: beer Patient Tobacco Use Status: Current everyday Tobacco user Cigarettes Per Day: 5 service: No Current occupational status: retired Cognitive needs: No Hearing needs: No Vision needs: Yes Review of Systems Const All systems reviewed & are unremarkable except as noted in HPI and below Physical Exam Vital Signs: Last Vital Signs Pulse 79 08/07/24 08:06 BP 128/70 08/07/24 08:06 Pulse Ox 97 08/07/24 08:06 Oxygen Delivery Method Room Air 08/07/24 08:06 Const General: no acute distress; No comfortable Nutritional Appearance: well nourished Orientation/consciousness: patient oriented x3 Chest Chest palpation & inspection: tenderness rib and costochondral junction (Left Side) Chest/axillae images: 2 1. No Crepitus, TTP Resp Effort & Inspection: normal respiratory effort and able to speak in complete sentences Auscultation: clear to auscultation bilaterally, no crackles, no rales, no rhonchi and no wheezes Cardio Rhythm: regular rhythm Heart sounds: S1 normal heart sound present and S2 normal heart sound present Neuro General: patient oriented x3 Assessment & Plan Assessment & Plan (1) Contusion of left chest wall: Code(s): S20.212A - Contusion of left front wall of thorax, initial encounter Qualifiers: Encounter type: initial encounter Qualified Code(s): S20.212A - Contusion of left front wall of thorax, initial encounter Plan: Ordered Chest/Rib Xray. NSAIDs and Acetaminophen for pain relief Ice/Hot Ordered Muscle relaxants. Orders: Orders 2 XR ribs LT min 3V w CXR1V Today S20.212A - Contusion of left front wall of thorax, initial encounter Medications: New 2 lidocaine 5% leave on most painful area for up to 12 hrs 1 patch topical DAILY 30 ea 0RF S20.212A - Contusion of left front wall of thorax, initial encounter cyclobenzaprine 5 mg PO BEDTIME 10 tabs 0RF S20.212A - Contusion of left front wall of thorax, initial encounter ibuprofen 800 mg PO Q8H 30 tabs 0RF S20.212A - Contusion of left front wall of thorax, initial encounter Coding Level of Care Code Est Pt Level 4 (12146) Diagnoses Contusion of left chest wall, initial encounter S20.212A Encounter type: initial encounter Time Spent (min) 20
[2024-08-07 08:06] VITALS: BP 128/70; PULSE 79; O2SAT 97
== END 2024-08-07 08:51 | disposition home or self-care (01) ==
PROVIDERS: PCP Internal Medicine; Visit Provider Nurse Practitioner Family
DX: S20.212A Contusion of left front wall of thorax, initial encounter (principal)

== ENCOUNTER → 2024-08-07 08:31 | Outpatient (BNV) | payer BC, SELFPAY | PROVIDERS: PCP Internal Medicine; Visit Provider Radiology Diagnostic Radiology | DX: S22.42XA Multiple fractures of ribs, left side, initial encounter for closed fracture (principal) | CPT/HCPCS: 71101 ==

== ENCOUNTER 2024-10-29 08:20 | Outpatient (REF) | payer BC, SELFPAY | END 2024-10-29 08:21 | disposition home or self-care (01) | LOC: HO.MAMMO 08:20 | PROVIDERS: PCP Internal Medicine; Visit Provider Internal Medicine | DX: Z12.31 Encounter for screening mammogram for malignant neoplasm of breast (principal) | CPT/HCPCS: 77063; 77067 ==

== ENCOUNTER → 2024-10-29 08:30 | Outpatient (BNV) | payer BC, SELFPAY | PROVIDERS: PCP Internal Medicine; Visit Provider Radiology Body Imaging | DX: Z12.31 Encounter for screening mammogram for malignant neoplasm of breast (principal) | CPT/HCPCS: 77063; 77067 ==

== ENCOUNTER 2024-11-26 08:02 | Outpatient (REF) | payer BC, SELFPAY ==
[2024-11-26 10:14] LABS: Hematocrit 46.6 % (37.0-47.0); Hemoglobin 15.9 g/dl (12.0-16.0); Mean Corpuscular HGB Conc 34.1 g/dl (31.0-35.0); Mean Corpuscular Hemoglobin 33.3 pg (27.0-33.0); Mean Corpuscular Volume 97.5 fL (80.0-98.0); NRBC Abs Auto 0.000 X10*3/uL (0.0-0.012); NRBC Pct Auto 0.0 /100WBC (0.0-0.2); Platelet Count 247 X10*3/uL (160-400); Red Blood Count 4.78 X10*6/uL (4.20-5.50); White Blood Count 6.9 X10*3/uL (4.8-10.8)
[2024-11-26 10:27] LABS: Appearance Urine Clear; Glucose Urine UA Negative (Negative); PH 5.5 (5.0-9.0); Specific Gravity - Urine 1.010 (1.005-1.025)
[2024-11-26 11:04] LABS: Alanine Aminotransferase 23 U/L (0-31); Albumin Level 4.1 g/dL (3.5-5.0); Alkaline Phosphatase 83 U/L (39-117); Anion Gap 13 (12-20); Aspartate Amino Transferase 35 U/L (5-31); Blood Urea Nitrogen 10 mg/dL (9-16); Calcium 9.6 mg/dL (8.4-10.2); Carbon Dioxide 28 mmol/L (22-29); Chloride 103 mmol/L (96-108); Cholesterol 187 mg/dL (<200); Estimated Glomerular Filt Rate > 60; HDL Cholesterol 65 mg/dL (>40); Potassium 4.7 mmol/L (3.3-5.1); Sodium 139 mmol/L (135-145); Total Protein 7.5 g/dL (6.5-8.0); Triglycerides 92 mg/dL (<150)
[2024-11-26 11:12] LABS: Thyroid Stimulating Hormone 2.03 uIU/mL (0.32-4.0)
== END 2024-11-26 08:03 | disposition home or self-care (01) ==
LOC: HO.HMGCLDS 08:02
PROVIDERS: PCP Internal Medicine; Visit Provider Internal Medicine
DX: M81.0 Age-related osteoporosis without current pathological fracture (principal); E78.5 Hyperlipidemia, unspecified; E03.9 Hypothyroidism, unspecified; F17.200 Nicotine dependence, unspecified, uncomplicated
CPT/HCPCS: 36415; 80048; 80061; 80076; 81003; 84443; 85027

== ENCOUNTER 2024-12-12 08:47 | Outpatient (REF) | payer BC, SELFPAY ==
--- NOTE | ~2024-12-12 | MM_ITS ---
EXAMINATION: MM DIAGNOSTIC DIGITAL BREAST TOMOSYNTHESIS, LEFT Left breast ultrasound. CLINICAL INFORMATION: Call back from screening for focal asymmetry in the left breast. COMPARISON: Mammography: [facility] on PACS. TECHNIQUE: Digital breast tomosynthesis is performed in both the craniocaudal and mediolateral oblique views along with computer-aided detection (CAD). Synthesized 2D images are generated from the tomosynthesis. FINDINGS: There are scattered areas of fibroglandular density (ACR BI-RADS breast composition Category b). Focal asymmetry in the retroareolar region anterior depth does not persist on additional imaging projections and likely represented overlapping breast tissue. There are no significant masses, abnormal calcifications, or other abnormalities. Targeted color Doppler ultrasound scanning in the left retroareolar region demonstrates normal fibronodular breast tissue. There is no sonographic abnormal finding. MM/MM tomosynthesis added views L IMPRESSION: No mammographic evidence of malignancy. ASSESSMENT: BI-RADS BI-RADS 1 - Negative RECOMMENDATION: 1 year F/U Results were provided to the patient at time of visit by the technologist. This patient's information was entered into a reminder system with a target due date for their next mammogram. Electronically signed by: Pepper Jett DO 12/12/2024 11:13 AM EDT
== END 2024-12-12 08:48 | disposition home or self-care (01) ==
LOC: HO.MAMMO 08:47
PROVIDERS: PCP Internal Medicine; Visit Provider Internal Medicine
DX: N64.89 Other specified disorders of breast (principal)
CPT/HCPCS: 76642; 77061; 77065

== ENCOUNTER → 2024-12-12 09:00 | Outpatient (BNV) | payer BC, SELFPAY | PROVIDERS: PCP Internal Medicine; Visit Provider Internal Medicine | DX: R92.8 Other abnormal and inconclusive findings on diagnostic imaging of breast (principal) | CPT/HCPCS: 76642; 77061; 77065 ==